=== PATIENT | female | born 1960 | race Caucasian/White ===

== ENCOUNTER 2017-01-07 10:48 | Observation (INO) | payer MEDICARE, OTHER ==
[~2017-01-07] VITALS: Ht 162.6 cm; Wt 60.0 kg
[~2017-01-07 10:48] MED LIST: LEXA20TA PO; SERO100T PO; VALI10TA PO; XANA1TAB6 PO
[2017-01-07 10:49] VITALS: BP 162/90; PULSE 88; RESP 17; TEMP 97.9; O2SAT 97
[2017-01-07] MEDS ORDERED: DIAZ10TA PO (11:12)
[2017-01-07] MEDS ORDERED: XANA1TAB2 PO (11:12)
[2017-01-07] MEDS ORDERED: LEXA20TA PO (11:12)
[2017-01-07] MEDS ORDERED: SERO50TA PO (11:12)
[2017-01-07 11:36] VITALS: O2SAT 97
--- NOTE | 2017-01-07 11:36 | PD ---
HPI Chief Complaint: Chest Pain Time Seen by Provider: 11:35 Travel History International Travel<30 days: No Contact w/Intl Traveler<30days: No Traveled to known affect area: No History of Present Illness HPI 56-year-old female presents to the emergency department for evaluation of chest pain that started approximately 1 week ago and has been intermittent. Patient states the chest pain is midsternal. She states his pressure intermittently sharp. She states that it comes and goes. She states that movement will make it slightly worse. She denies any fevers or chills. No cough or congestion. She denies any radiation of the pain. No abdominal pain. No nausea, vomiting, diarrhea. Patient reports history of anxiety. She states that she was going to get 5 teeth pulled this morning and she started shaking and that she told Dr. Lee about her chest pain who then referred her to the emergency department for cardiac clearance. The patient denies any cardiac history. No recent surgery or travel. No leg edema. No hemoptysis. She states that she is allergic to aspirin. Last stress test according to the chart was August with no defect found. Risk category was low at that time. Patient states this was her last stress test. PFSH Past Medical History Hx Anticoagulant Therapy: No Anxiety: Yes Depression: Yes Heart Rhythm Problems: No Cardiac Catheterization: No Cardiovascular Problems: No High Cholesterol: No Chemotherapy: No Congestive Heart Failure: No Cerebrovascular Accident: No Diabetes: No Diminished Hearing: No Hypertension: No Psychiatric: Yes (ANXIETY, DEPRESSION, AGORAPHOBIA) Respiratory: No Tetanus Vaccination: > 5 Years Influenza Vaccination: No ?: Not Menopausal: Yes : 1 Para: 1 Past Surgical History Cholecystectomy: Yes Coronary Artery Bypass Graft: No Hysterectomy: No Oral Surgery: Yes (CYST AND 3 TEETH REMOVED) Social History Alcohol Use: No Tobacco Use: Yes (1 PPD) Substance Use: No Allergies-Medications (Allergen,Severity, Reaction): Coded Allergies: Aspirin (Verified Allergy, Severe, 09/25/15) Darvocet-N 100 (Verified Allergy, Severe, Hives, 09/25/15) Darvon (Verified Allergy, Severe, Hives, 09/25/15) Dilaudid (Verified Allergy, Severe, Irritability/Anxiety, 09/25/15) Reported Meds & Prescriptions Reported Meds & Active Scripts Active Reported Lexapro (Escitalopram Oxalate) 20 Mg Tab 20 Mg PO DAILY Seroquel (Quetiapine Fumarate) 50 Mg Tab 50 Mg PO HS Diazepam 10 Mg Tab 10 Mg PO BID PRN Xanax (Alprazolam) 1 Mg Tab 1 Mg PO Q6H PRN Review of Systems Except as stated in HPI: all other systems reviewed are Neg Physical Exam Narrative GENERAL: Well-nourished, well-developed female patient, ambulatory. Afebrile. SKIN: Focused skin assessment warm/dry. HEAD: Normocephalic. Atraumatic. EYES: No scleral icterus. No injection or drainage. NECK: Supple, trachea midline. No JVD or lymphadenopathy. CARDIOVASCULAR: Regular rate and rhythm without murmurs, gallops, or rubs. RESPIRATORY: Breath sounds equal bilaterally. No accessory muscle use. Lungs sounds are clear to auscultation. GASTROINTESTINAL: Abdomen soft, non-tender, nondistended. MUSCULOSKELETAL: No cyanosis, or edema. BACK: Nontender without obvious deformity. No CVA tenderness. Data Data Last Documented VS Vital Signs Date Time Temp Pulse Resp B/P Pulse Ox O2 Delivery O2 Flow Rate FiO2 01/07/17 11:36 97 Room Air 01/07/17 11:03 80 20 01/07/17 10:49 97.9 162/90 Orders Electrocardiogram (01/07/17 11:34) Basic Metabolic Panel (Bmp) (01/07/17 11:34) Ckmb (Isoenzyme) Profile (01/07/17 11:34) Complete Blood Count With Diff (01/07/17 11:34) Magnesium (Mg) (01/07/17 11:34) Troponin I (01/07/17 11:34) Chest, Single Ap (01/07/17 11:34) Ecg Monitoring (01/07/17 11:34) Bilateral Bp Monitoring (01/07/17 11:34) Iv Access Insert/Monitor (01/07/17 11:34) Oximetry (01/07/17 11:34) Oxygen Administration (01/07/17 11:34) Sodium Chloride 0.9% Flush (Ns Flush) (01/07/17 11:45) Potassium Chloride (Kcl) (01/07/17 12:30) Admit Order (Ed Use Only) (01/07/17 13:34) Labs Laboratory Tests Test 01/07/17 11:40 White Blood Count 8.6 TH/MM3 Red Blood Count 4.20 MIL/MM3 Hemoglobin 12.9 GM/DL Hematocrit 37.5 % Mean Corpuscular Volume 89.2 FL Mean Corpuscular Hemoglobin 30.8 PG Mean Corpuscular Hemoglobin 34.5 % Concent Red Cell Distribution Width 14.6 % Platelet Count 274 TH/MM3 Mean Platelet Volume 7.9 FL Neutrophils (%) (Auto) 67.2 % Lymphocytes (%) (Auto) 25.8 % Monocytes (%) (Auto) 5.4 % Eosinophils (%) (Auto) 1.2 % Basophils (%) (Auto) 0.4 % Neutrophils # (Auto) 5.8 TH/MM3 Lymphocytes # (Auto) 2.2 TH/MM3 Monocytes # (Auto) 0.5 TH/MM3 Eosinophils # (Auto) 0.1 TH/MM3 Basophils # (Auto) 0.0 TH/MM3 CBC Comment DIFF FINAL Differential Comment Sodium Level 135 MEQ/L Potassium Level 3.2 MEQ/L Chloride Level 98 MEQ/L Carbon Dioxide Level 29.1 MEQ/L Anion Gap 8 MEQ/L Blood Urea Nitrogen LESS THAN 1 MG/DL Creatinine 0.76 MG/DL Estimat Glomerular Filtration 79 ML/MIN Rate Random Glucose 107 MG/DL Calcium Level 8.4 MG/DL Magnesium Level 2.2 MG/DL Total Creatine Kinase 51 U/L Troponin I LESS THAN 0.02 NG/ML [facility] Medical Decision Making Medical Screen Exam Complete: Yes Emergency Medical Condition: Yes Medical Record Reviewed: Yes Interpretation(s) Last Impressions Chest X-Ray 01/07/17 1134 Signed Impressions: Service Date/Time: January 11:34 - CONCLUSION: Normal examination. Gustavo Davis Jr., MD Differential Diagnosis Anxiety versus atypical chest pain versus chest wall pain versus ACS Narrative Course 56-year-old female presents to the emergency department for evaluation of midsternal chest pain has been intermittent for one week. Patient does appear anxious on exam. EKG shows sinus rhythm, heart rate 76, no acute ST changes. CBC, BMP, CK, troponin, magnesium, chest x-ray are ordered and pending. Patient states that she is allergic to aspirin so no aspirin has been given. CBC is unremarkable. BMP shows hypokalemia of 3.2, no acute abnormalities. CK is 51. Troponin is less than 0.02. Magnesium is 2.2. Chest x-ray is normal. Patient is given potassium 20 meq PO. Patient will be admitted the chest pain center. She verbalizes agreement to this plan. Diagnosis Primary Impression: Atypical chest pain Admitting Information Admitting Physician Requests: Observation Raeann Gamez January 07, 2017 11:36
[2017-01-07] MEDS ORDERED: SODIUM CHLORIDE 0.9% FLUSH 10 ML FLUSH IVF PRN (11:45)
[2017-01-07 11:47] LABS: AUTOMATED NEUTROPHIL # 5.8 TH/MM3 (1.8-7.7); BASOPHIL % 0.4 % (0.0-2.0); EOSINOPHIL # 0.1 TH/MM3 (0-0.4); EOSINOPHIL % 1.2 % (0.0-4.0); HEMATOCRIT 37.5 % (35.0-46.0); HEMO FLAGS DIFF FINAL; LYMPH % 25.8 % (9.0-44.0); LYMPHOCYTE # 2.2 TH/MM3 (1.0-4.8); MEAN CELL VOLUME 89.2 FL (80.0-100.0); MEAN CORPUSCULAR HEMOGLOBIN 30.8 PG (27.0-34.0); MEAN CORPUSCULAR HGB CONC 34.5 % (32.0-36.0); MONO % 5.4 % (0.0-8.0); NEUT % 67.2 % (16.0-70.0); PLATELET COUNT 274 TH/MM3 (150-450); RED CELL DISTRIBUTION WIDTH 14.6 % (11.6-17.2); WHITE BLOOD COUNT 8.6 TH/MM3 (4.0-11.0)
[2017-01-07 12:00] VITALS: BP 125/68; PULSE 72; RESP 17; O2SAT 97
[2017-01-07 12:04] LABS: ANION GAP 8 MEQ/L (5-15); BICARBONATE 29.1 MEQ/L (21.0-32.0); BLOOD UREA NITROGEN LESS THAN 1 MG/DL (7-18); CHLORIDE 98 MEQ/L (98-107); GLOMERULAR FILTRATION RATE 79 ML/MIN (>89); MAGNESIUM 2.2 MG/DL (1.5-2.5); POTASSIUM 3.2 MEQ/L (3.5-5.1); SODIUM (NA) 135 MEQ/L (136-145)
[2017-01-07 12:11] LABS: CREATINE KINASE 51 U/L (26-192)
[2017-01-07] MEDS ORDERED: POTASSIUM CHLORIDE 20 MEQ CONTROLLED RELEASE TAB PO ONE (12:30)
--- NOTE | 2017-01-07 13:30 | RADRPT ---
EXAM DATE/TIME: 01/07/2017 11:34 [place] COMPARISON: CHEST SINGLE AP, August 03, 2015, 14:47. INDICATIONS : Chest pain MEDICAL HISTORY : None. SURGICAL HISTORY : None. ENCOUNTER: Initial ACUITY: 1 day PAIN SCORE: 2/10 LOCATION: Bilateral chest FINDINGS: A single view of the chest demonstrates the lungs to be symmetrically aerated without evidence of mas s, infiltrate or effusion. The cardiomediastinal contours are unremarkable. Osseous structures are intact. CONCLUSION: Normal examination. Gustavo Davis Jr., MD on January 07, 2017 at 13:27 Board Certified Radiologist. This report was verified electronically.
[2017-01-07 14:00] VITALS: BP 130/79; PULSE 70; RESP 17; O2SAT 97
--- NOTE | 2017-01-07 14:39 | PD ---
Physical Exam Narrative GENERAL: Well-nourished, well-developed patient. SKIN: Warm and dry. HEAD: Normocephalic and atraumatic. EYES: No injection or drainage. ENT: No nasal drainage noted. NECK: Supple, trachea midline. CARDIOVASCULAR: Regular rate and rhythm RESPIRATORY: No increased effort. No accessory muscle use. NEUROLOGICAL: Awake and alert. Moves all extremities. Normal speech. Data Data Last Documented VS Vital Signs Date Time Temp Pulse Resp B/P Pulse Ox O2 Delivery O2 Flow Rate FiO2 01/07/17 12:00 72 17 125/68 97 01/07/17 11:36 Room Air 01/07/17 10:49 97.9 Orders Electrocardiogram (01/07/17 11:34) Basic Metabolic Panel (Bmp) (01/07/17 11:34) Ckmb (Isoenzyme) Profile (01/07/17 11:34) Complete Blood Count With Diff (01/07/17 11:34) Magnesium (Mg) (01/07/17 11:34) Troponin I (01/07/17 11:34) Chest, Single Ap (01/07/17 11:34) Ecg Monitoring (01/07/17 11:34) Bilateral Bp Monitoring (01/07/17 11:34) Iv Access Insert/Monitor (01/07/17 11:34) Oximetry (01/07/17 11:34) Oxygen Administration (01/07/17 11:34) Sodium Chloride 0.9% Flush (Ns Flush) (01/07/17 11:45) Potassium Chloride (Kcl) (01/07/17 12:30) Admit Order (Ed Use Only) (01/07/17 13:34) Labs Laboratory Tests Test 01/07/17 11:40 White Blood Count 8.6 TH/MM3 Red Blood Count 4.20 MIL/MM3 Hemoglobin 12.9 GM/DL Hematocrit 37.5 % Mean Corpuscular Volume 89.2 FL Mean Corpuscular Hemoglobin 30.8 PG Mean Corpuscular Hemoglobin 34.5 % Concent Red Cell Distribution Width 14.6 % Platelet Count 274 TH/MM3 Mean Platelet Volume 7.9 FL Neutrophils (%) (Auto) 67.2 % Lymphocytes (%) (Auto) 25.8 % Monocytes (%) (Auto) 5.4 % Eosinophils (%) (Auto) 1.2 % Basophils (%) (Auto) 0.4 % Neutrophils # (Auto) 5.8 TH/MM3 Lymphocytes # (Auto) 2.2 TH/MM3 Monocytes # (Auto) 0.5 TH/MM3 Eosinophils # (Auto) 0.1 TH/MM3 Basophils # (Auto) 0.0 TH/MM3 CBC Comment DIFF FINAL Differential Comment Sodium Level 135 MEQ/L Potassium Level 3.2 MEQ/L Chloride Level 98 MEQ/L Carbon Dioxide Level 29.1 MEQ/L Anion Gap 8 MEQ/L Blood Urea Nitrogen LESS THAN 1 MG/DL Creatinine 0.76 MG/DL Estimat Glomerular Filtration 79 ML/MIN Rate Random Glucose 107 MG/DL Calcium Level 8.4 MG/DL Magnesium Level 2.2 MG/DL Total Creatine Kinase 51 U/L Troponin I LESS THAN 0.02 NG/ML MDM Supervised Visit with ZEB: Yes Interpretation(s) EKG shows NSR, no ST elevation or depression, and no arrhythmias. No significant T-wave inversions. Last 24 hours Impressions Chest X-Ray 01/07/17 1134 Signed Impressions: Service Date/Time: January 11:34 - CONCLUSION: Normal examination. Gustavo Davis Jr., MD CBC & BMP Diagram 01/07/17 11:40 Narrative Course I, Dr. cadet, have reviewed the advance practice practitioner's documentation and am in agreement, met with the patient face to face, made the diagnosis, and the medical decision making was done by me. *My assessment and Findings: 56 y/o female presents with intermittent chest pain. Her symptoms are atypical. ER workup no acute. She agrees to chest pain center observation for cardiac clearance. Physician Communication Physician Communication dr callejas gave brief report that he has needing to pull teeth and she mentioned chest pain and she was sent here for cardiac clearance Diagnosis Primary Impression: Atypical chest pain Belgica Cadet MD January 07, 2017 14:39
[2017-01-07 15:00] VITALS: BP 127/74; PULSE 74; RESP 17; O2SAT 99
--- NOTE | 2017-01-07 15:01 | HHI.DCPOC ---
Discharge Care Plan Diagnosis: (1) Atypical chest pain (2) Panic attacks (3) Musculoskeletal pain Goals to Promote Your Health * To prevent worsening of your condition and complications * To maintain your health at the optimal level Directions to Meet Your Goals Take your medications as prescribed Follow your dietary instruction Follow activity as directed Keep your appointments as scheduled Take your immunizations and boosters as scheduled If your symptoms worsen call your PCP, if no PCP go to Urgent Care Center or Emergency Room Smoking is Dangerous to Your Health. Avoid second hand smoke Call the 24-hour hour crisis hotline for domestic abuse at Barrington Hwang MD January 07, 2017 15:01
--- NOTE | 2017-01-07 15:12 | HHI.HP ---
HPI Primary Care Physician No Primary Care Physician Chief Complaint Chest pain History of Present Illness This is a 56-year-old female that presents to ED with a complaint of chest discomfort. Sharp pinching pain that's been constant and dull pain also constant for a long time. She has used heat and NSAIDs with questionable help. No associated shortness breath, nausea, or diaphoresis. She went to her oral surgeon to have dental extractions today and mentioned that she has been having chest pain and was referred to the ED for evaluation. Review of Systems General: Patient denies fevers, chills recent, and recent travel HEENT: Patient denies headache, sore throat, difficulty swallowing. Cardiovascular: Has the chest discomfort as mentioned above. Denies sensation of heart beating rapidly or irregularly. No syncope. Denies diaphoresis. Respiratory: Denies shortness of breath or inspirational chest discomfort. Denies coughing wheezing or hemoptysis. GI: Patient denies nausea, vomiting, diarrhea, abdominal pain, bloody stools. Musculoskeletal: Patient denies joint pain or edema. Denies calf pain or edema. Neurovascular: Patient denies numbness, tingling, weakness in extremities. Denies headache. Endocrine: Denies polyuria and polydipsia. Hematologic: Denies easy bruising. Skin: Denies rash or itching. Past Family Social History Allergies: Coded Allergies: Aspirin (Verified Allergy, Severe, 09/25/15) Darvocet-N 100 (Verified Allergy, Severe, Hives, 09/25/15) Darvon (Verified Allergy, Severe, Hives, 09/25/15) Dilaudid (Verified Allergy, Severe, Irritability/Anxiety, 09/25/15) Past Medical History Chronic anxiety, tobacco abuse. Denies hypertension, hyperlipidemia, diabetes, and known CAD. Past Surgical History Noncontributory Reported Medications Reported Meds & Active Scripts Active Reported Lexapro (Escitalopram Oxalate) 20 Mg Tab 20 Mg PO DAILY Seroquel (Quetiapine Fumarate) 50 Mg Tab 50 Mg PO HS Diazepam 10 Mg Tab 10 Mg PO BID PRN Xanax (Alprazolam) 1 Mg Tab 1 Mg PO Q6H PRN Active Ordered Medications Current Medications Medications (Trade) Dose Ordered Sig/Pooja Route Start Time Stop Time Status Last Admin (NS Flush) 2 ml UNSCH PRN IVF 01/07/17 11:45 Family History Denies family history of CAD. Social History 1/2-1 pack a day cigarettes for 35 years. Occasional alcohol. Denies illicit drug use. Physical Exam Vital Signs Vital Signs Date Time Temp Pulse Resp B/P Pulse Ox O2 Delivery O2 Flow Rate FiO2 01/07/17 14:00 70 17 130/79 97 01/07/17 12:00 72 17 125/68 97 01/07/17 11:36 97 Room Air 01/07/17 11:36 97 Room Air 01/07/17 11:03 80 20 97 Room Air 01/07/17 10:49 97.9 88 17 162/90 97 Physical Exam GENERAL: This is a well-nourished, well-developed patient, in no apparent distress. Patient speaks in clear complete sentences. Patient is pleasant. HEENT: Head is atraumatic and normocephalic. Neck is supple without lymphadenopathy and trachea is midline. No JVD or carotid bruits. CARDIOVASCULAR: Regular rate and rhythm without murmurs, gallops, or rubs. RESPIRATORY: Clear to auscultation. Breath sounds equal bilaterally. No wheezes , rales, or rhonchi. Chest wall is tender in the center to left side of her chest. No use of accessory muscles. GASTROINTESTINAL: Abdomen is nontender, nondistended. Abdomen soft. No obvious pulsatile mass or bruit. No CVA tenderness. Strong femoral pulses bilaterally. Normal bowel sounds in all quadrants. MUSCULOSKELETAL: Patient is moving upper and lower extremities freely. No calf tenderness or edema, no Homans sign. Strong pulses in upper and lower extremities. NEUROLOGICAL: Patient is alert and oriented. Cranial nerves 2-12 are grossly intact. No focal deficits and speech is clear. SKIN: No rash and turgor is normal. Laboratory Laboratory Tests Test 01/07/17 11:40 White Blood Count 8.6 Red Blood Count 4.20 Hemoglobin 12.9 Hematocrit 37.5 Mean Corpuscular Volume 89.2 Mean Corpuscular Hemoglobin 30.8 Mean Corpuscular Hemoglobin 34.5 Concent Red Cell Distribution Width 14.6 Platelet Count 274 Mean Platelet Volume 7.9 Neutrophils (%) (Auto) 67.2 Lymphocytes (%) (Auto) 25.8 Monocytes (%) (Auto) 5.4 Eosinophils (%) (Auto) 1.2 Basophils (%) (Auto) 0.4 Neutrophils # (Auto) 5.8 Lymphocytes # (Auto) 2.2 Monocytes # (Auto) 0.5 Eosinophils # (Auto) 0.1 Basophils # (Auto) 0.0 CBC Comment DIFF FINAL Differential Comment Sodium Level 135 Potassium Level 3.2 Chloride Level 98 Carbon Dioxide Level 29.1 Anion Gap 8 Blood Urea Nitrogen LESS THAN 1 Creatinine 0.76 Estimat Glomerular Filtration 79 Rate Random Glucose 107 Calcium Level 8.4 Magnesium Level 2.2 Total Creatine Kinase 51 Troponin I LESS THAN 0.02 Result Diagram: 01/07/17 1140 01/07/17 1140 Imaging Last 24 hours Impressions Chest X-Ray 01/07/17 1134 Signed Impressions: Service Date/Time: January 11:34 - CONCLUSION: Normal examination. Gustavo Davis Jr., MD Course Initial EKG is sinus rhythm without significant ST segment depressions or elevations. Assessment and Plan Assessment and Plan * Atypical chest pain: Patient was seen by Dr. Hwang of cardiology and the chest pain center. Her symptoms are atypical and appears musculoskeletal and will be discharged home at this time without any further testing. She should follow back with her primary care physician and Dr. Hwang has okayed her to have her dental extractions. * Tobacco abuse: Patient has been counseled on importance of smoking cessation. Ryan James January 07, 2017 15:12
--- NOTE | 2017-01-08 15:49 | EKG ---
Date Performed: 01/07/2017 Time Performed: 11:04:23 PTAGE: 56 years EKG: Sinus rhythm WITH SHORT [place] INTERVAL BORDERLINE ECG PREVIOUS TRACING : 09/06/2015 06.16 DOCTOR: Rui Razo Interpretating Date/Time 01/08/2017 15:41:10
== END 2017-01-07 15:59 | disposition home or self-care (01) ==
LOC: NEPC 10:48 → NEDA 13:35
DX: R07.89 Other chest pain (principal); F41.9 Anxiety disorder, unspecified; F32.9 Major depressive disorder, single episode, unspecified; R48.8 Other symbolic dysfunctions; F17.200 Nicotine dependence, unspecified, uncomplicated; Z88.6 Allergy status to analgesic agent; Z88.5 Allergy status to narcotic agent; Z71.6 Tobacco abuse counseling
CPT/HCPCS: 71010; 80048; 82550; 83735; 84484; 85025; 93005; 99285; G0378